=== PATIENT | female | born 2000 ===

== ENCOUNTER → 2025-05-04 23:59 | Outpatient (BNV) | payer OTHER, SELFPAY ==
--- NOTE | 2025-05-05 10:35 | MHC.OFFVIS ---
Intake Visit Reasons: follow up HPI Comments Details: student presents to office for follow up on previous [facility]'s connections (not charted in our system) she was treated for ADHD (previously been on concerta - which is not rx'd here - and pain in ears. no covid test was done. symptomatic treatement was utilized as her exam was negative. [facility] started her on Wellbutrin ER 100mg q d x 1 week increase to BID after 1 month may increase in 100mg increments....sent her to pcp for continued prescribing. therapy referral made to donte palacio (on site counselor). she took medication for about a week and had follow up w/ [facility] who despite her preference to 'self-medicate' with cannabis - she increased the dose. Pt states now that she went to PCP and the medication was discontinued bc she had headache and it made her mood swings worse and preferred to self-medicate w/ cannabis- she feels that this is helpful - uses sativa and only gerts from dispensary so she gets more reputible product. she smokes approx 2-3 x week - 2-3x day. and she feels that it helps her participate in things and be less w/drawn. helps her to concentrate. she states that her pcp will be seeing her again in week or so to eval how feels off the medcaitons and whether they are going to treat w/ meds again. Her mood today is good - can't say why but everybody woke up in a good mood today (when depression comes - it 'comes out of nowhere and she becomes quite apathetic and sad, doesn't talk. she denies any symptoms of junito by description but I question if this is an issue given the 'making mood swings worse'....but the goal today is to establish relationship so that we can be of support to this vulnerable student. she dropped out of school - for reasons she doesn't elaborate but found her way to our program through [employer]. she's excited to be in class and finds that ADHD is not a problem in class her bc they allow her to take care of her needs, class is small. she hopes to go to [employer] downstairs. PMH: ADHD, depression she was in hospital for of her child (boy 5 years old) and because her appendix 'got a blood clot - it was treated not removed' she has IUD in place and her partner is not baby's father - she has been w/ this man 29 year old for approx 1 year and feels that he's a 'really good hiral' a nerd . ETOH: no CANNABIS yes - see above - feels it is medication for her (this was not disputed today - just let her speak what she feels is helping her), CIG: no FMH: Her mother is in very good heatlh at 52, her father is in seemingly good health as well - she 'sees him from time to time' - her parents are not together. she has approx 4 sisters 2 have anemia/something w/ their bones that makes them really skinny, and she has more brothers than she can count approx 10 - one has downs syndrome, one is autistic but otherwise they are all fine. she lives w/ only 1 brother who is in good health. she lives w/ her mother, one brother and her baby. this is a good situation for her - even though sometimes irritating [facility] Medical History (Updated 05/05/25 @ 10:59 by KATERINE Payne) Depression, major, recurrent, moderate History of ADHD Family History (Updated 05/05/25 @ 11:01 by KATERINE Payne) Mother No problems noted. Father No problems noted. Brother No problems noted. Sister No problems noted. Sister No problems noted. Sister Bone disorder Anemia Sister Anemia Bone disorder Brother Down syndrome Brother Autism Brother No problems noted. Brother No problems noted. Brother No problems noted. Brother No problems noted. Brother No problems noted. Brother No problems noted. Brother No problems noted. Son No problems noted. Review of Systems Const Details: Counseling visit: All systems reviewed & are unremarkable except as noted in HPI and below Reports as per HPI Resp Reports as per HPI GI Reports as per HPI Musc Reports as per HPI Neuro Reports as per HPI Psych Reports as per HPI Physical Exam Const General: cooperative, healthy appearing and no acute distress Nutritional Appearance: well nourished Orientation/consciousness: oriented to person Limitations: no limitations HEENT Other: wnl Eyes Other: wnl Chest Other: easy breathing Resp Effort & Inspection: able to speak in complete sentences Skin Other: normal in appearance Neuro General: oriented to person Psych Other: see HPI Mental Status: mental status grossly normal Speech and movement: Clear speech present Attitude: cooperative Thought process: Normal thought process present Assessment & Plan Assessment & Plan (1) Counseling and coordination of care: Code(s): Z71.89 - Other specified counseling Category: Medical (2) control counseling: Code(s): Z30.09 - Encounter for other general counseling and advice on contraception Category: Medical (3) Depression, major, recurrent, moderate: Code(s): F33.1 - Major depressive disorder, recurrent, moderate Category: Medical (4) History of ADHD: Code(s): Z86.59 - Personal history of other mental and behavioral disorders Category: Medical Plan extensive coordination of care w/ previous SURG[employer]MENT [employer], onsite counselor, pcp and onsite team -referral to therapist. This student while having a good day, seems quite vulnerable and needs monitoring of mood and supports. we will all maintain a coordinated approach to provide ongoing support Coding Level of Care Code New Pt Level 5 (27627) Diagnoses Counseling and coordination of care Z71.89 control counseling Z30.09 Depression, major, recurrent, moderate F33.1 History of ADHD Z86.59 Additional Codes PHQ-9 - 14428 - PHQ-9 Billing: Yes ([id number]) [facility] Assessment Charge - Crafft: ZARIA [id number] ([id number]) Time Spent (min) 60 Comment over hour given extensive coordination and counseling PHQ-9 Over the last 2 weeks, how often have you been bothered by any of the following problems? 1. Little interest or pleasure in doing things: nearly every day 2. Feeling down, depressed, or hopeless: nearly every day 3. Trouble falling or staying asleep, or sleeping too much: more than half the days 4. Feeling tired or having little energy: nearly every day 5. Poor appetite or overeating: nearly every day 6. Feeling bad about yourself - or that you are a failure or have let yourself or your family down: nearly every day 7. Trouble concentrating on things, such as reading the newspaper or watching television: several days 8. Moving or speaking so slowly that other people could have noticed. Or the opposite - being so fidgety or restless that you have been moving around a lot more than usual: nearly every day 9. Thoughts that you would be better off or of hurting yourself in some way: not at all Total score: 21 Depression Screening Interpretation: Positive (she is working w/ us and w/ her pcp regarding meds, and referred for therapy ) Depression Screening Follow-up: Existing condition, In treatment and New Medication prescribed Depression Screening Done: Yes [id number] - PHQ-9 Billing: Yes Source: Developed by Drs. Donte Weir, Elina Bermudez, Mundo Means and colleagues, with an educational kanwal from [employer]. ZARIA Screening Tool PART A: In the PAST 12 MONTHS, did you: Drink any alcohol (more than few sips)? (Do not count sips of alcohol taken during family or christianity events.): No Smoke any marijuana or hashish?: Yes Use anything else to get high? (includes illegal drugs, over the counter/prescription drugs, or things that you sniff/alcocer?): No PART B: If answered YES to ANY above: Have you ever been in a CAR driven by someone (including yourself) who was high or had been using alcohol or drugs?: No Do you ever use alcohol or drugs to RELAX, feel better about yourself, or fit in?: No Do you ever use alcohol or drugs while you are by yourself, or ALONE?: No Do you ever FORGET things while using alcohol or drugs?: No Do your FAMILY or FRIENDS ever tell you that you should cut down on your drinking or drug use?: No Have you ever gotten into TROUBLE while you were using alcohol or drugs?: No details: see hpi OMART Assessment Charge Omart: ZARIA [id number]
== END ==
PROVIDERS: PCP Nurse Practitioner Family; Visit Provider Nurse Practitioner Family
DX: F33.1 Major depressive disorder, recurrent, moderate (principal); Z71.89 Other specified counseling; Z30.09 Encounter for other general counseling and advice on contraception; Z86.59 Personal history of other mental and behavioral disorders
CPT/HCPCS: 96127; 96160; 99205

== ENCOUNTER → 2025-05-12 10:34 | Outpatient (BNV) | payer OTHER, SELFPAY ==
--- NOTE | 2025-05-12 10:34 | A.OFFVIS_ITS ---
Intake Visit Reasons: Amb Documentation HPI Comments Details: student states can't breath. was seen in ER yesterday and given meds - she doesn't know what she has taken nor what she has - took a pill this morning and an inhaler that was only 2 a day. called mom - states prednisone 20mg, pulmicort and nebuilizer - she does have an albuterol inhaler as well but didn't do any albuterol this morning. [facility] Medical History Depression, major, recurrent, moderate History of ADHD Family History Mother No problems noted. Father No problems noted. Brother No problems noted. Sister No problems noted. Sister No problems noted. Sister Bone disorder Anemia Sister Anemia Bone disorder Brother Down syndrome Brother Autism Brother No problems noted. Brother No problems noted. Brother No problems noted. Brother No problems noted. Brother No problems noted. Brother No problems noted. Brother No problems noted. Son No problems noted. Review of Systems Const All systems reviewed & are unremarkable except as noted in HPI and below ENT Reports no additional complaints Card Reports no additional complaints and Reports dyspnea Resp Details: cough - can't get air Reports chest congestion, Reports cough and Reports dyspnea GI Reports no additional complaints Skin/Breast Reports system reviewed and no additional complaints, except as documented Neuro Reports no additional complaints Physical Exam Const Other: afebrile - no oximeter available Resp Other: wheezing in all [place] -nebulizer treatement given. improved but still wheezing Cardio Rate: regular rate Rhythm: regular rhythm Heart sounds: S1 normal heart sound present and S2 normal heart sound present Skin General skin exam: no rashes or lesions noted Psych Other: normal affect w/ increased anxiety Appearance: well kempt Assessment & Plan Assessment & Plan (1) Moderate asthma with acute exacerbation: Code(s): J45.901 - Unspecified asthma with (acute) exacerbation Category: Medical Qualifiers: Asthma persistence: unspecified Qualified Code(s): J45.901 - Unspecified asthma with (acute) exacerbation (2) Counseling and coordination of care: Code(s): Z71.89 - Other specified counseling Category: Medical Plan nebulizer treatment - excused to home - if no improvement noted return to ER where was seen last night Coding Level of Care Code Est Pt Level 4 (70094) Diagnoses Moderate asthma with acute exacerbation, unspecified whether persistent J45.901 Asthma persistence: unspecified Counseling and coordination of care Z71.89 Time Spent (min) 35 Comment including counseling/teaching of meds and coord care w/ onsite services
== END ==
PROVIDERS: PCP Nurse Practitioner Family; Visit Provider Nurse Practitioner Family
DX: J45.901 Unspecified asthma with (acute) exacerbation (principal); Z71.89 Other specified counseling
CPT/HCPCS: 99214

== ENCOUNTER → 2025-06-01 10:29 | Outpatient (BNV) | payer OTHER, SELFPAY ==
--- NOTE | 2025-06-01 10:29 | A.OFFVIS_ITS ---
Intake Visit Reasons: Amb Documentation HPI Comments Details: student dropping in stating that her right lower ribs are hurting. hard to take a deep breath. no coughing, no issue breathing - she just came up stairs w/o issue. she points to a spot on her lower ribs and pain is reproduced w/ compression. teachign done [facility] Medical History Depression, major, recurrent, moderate History of ADHD Family History Mother No problems noted. Father No problems noted. Brother No problems noted. Sister No problems noted. Sister No problems noted. Sister Bone disorder Anemia Sister Anemia Bone disorder Brother Down syndrome Brother Autism Brother No problems noted. Brother No problems noted. Brother No problems noted. Brother No problems noted. Brother No problems noted. Brother No problems noted. Brother No problems noted. Son No problems noted. Review of Systems Const All systems reviewed & are unremarkable except as noted in HPI and below Reports as per HPI Resp Reports as per HPI GI Reports as per HPI Musc Reports as per HPI Neuro Reports as per HPI Psych Reports as per HPI Physical Exam afebrile Const General: cooperative, healthy appearing, comfortable and no acute distress Nutritional Appearance: well nourished Orientation/consciousness: patient oriented x3 Limitations: no limitations HEENT Other: wnl Eyes Other: wnl Chest Other: easy breathing Chest palpation & inspection: normal inspection of the chest and localized rib tenderness with anteroposterior compression Resp Effort & Inspection: normal respiratory effort and able to speak in complete sentences Auscultation: clear to auscultation bilaterally Skin Other: normal in appearance Neuro General: patient oriented x3 Psych Other: see HPI Appearance: grossly normal Mental Status: mental status grossly normal Speech and movement: Clear speech present Attitude: cooperative Thought process: Normal thought process present Assessment & Plan Assessment & Plan (1) Costochondritis, acute: Code(s): M94.0 - Chondrocostal junction syndrome [Tietze] Category: Medical (2) Counseling and coordination of care: Code(s): Z71.89 - Other specified counseling Category: Medical Plan teaching done - counseling - will return if there's further issues- let her counselor know in case they need support Coding Level of Care Code Est Pt Level 2 (61256) Diagnoses Costochondritis, acute M94.0 Counseling and coordination of care Z71.89 Time Spent (min) 15 Comment supportive counseling
== END ==
PROVIDERS: PCP Nurse Practitioner Family; Visit Provider Nurse Practitioner Family
DX: M94.0 Chondrocostal junction syndrome [Tietze] (principal); Z71.89 Other specified counseling
CPT/HCPCS: 99212

== ENCOUNTER → 2025-07-28 10:24 | Outpatient (BNV) | payer OTHER, SELFPAY ==
--- NOTE | 2025-07-28 10:24 | A.OFFVIS_ITS ---
Intake Visit Reasons: Amb Documentation HPI Comments Details: student signed up bc counselor told her to. she was really sick yesterday and feels today- better I just have a common cold . took covid test as per policy and was negative. I asked to see her bc she has asthma and doesn't seem to know when she is wheezing badly. she states that she used pump yesterday bc it was really bad. she has a pump at home - she didn't bring to school. Headache and fever yestreday but feels better today - she is afebrile. appears well but as the morning goes on she is appearing sicker - tireder. When I listen to her lungs rhonchi and wheezing through out - she states she is unwilling to cough bc it hurts her throat too much, had her drink water and go to try and cough - listening - her cough is dry and not productive. she was excused to go home, rest and take tylenol and use pump - 3-4 x day. [facility] Medical History Depression, major, recurrent, moderate History of ADHD Family History Mother No problems noted. Father No problems noted. Brother No problems noted. Sister No problems noted. Sister No problems noted. Sister Bone disorder Anemia Sister Anemia Bone disorder Brother Down syndrome Brother Autism Brother No problems noted. Brother No problems noted. Brother No problems noted. Brother No problems noted. Brother No problems noted. Brother No problems noted. Brother No problems noted. Son No problems noted. Review of Systems Const All systems reviewed & are unremarkable except as noted in HPI and below Reports as per HPI Resp Reports as per HPI GI Reports as per HPI Musc Reports as per HPI Neuro Reports as per HPI Psych Reports as per HPI Physical Exam Vital Signs: oxygen 97% Const Other: minor distress - worsened as morning went on. General: cooperative Nutritional Appearance: well nourished Orientation/consciousness: patient oriented x3 Limitations: no limitations HEENT Other: throat red but no exudate General nose exam: Normal external nose present and No nasal discharge present Mouth: Normal oral and palatal mucosa present Eyes Other: wnl Chest Other: easy breathing Resp Effort & Inspection: able to speak in complete sentences Auscultation: rhonchi throughout and wheezes throughout Cardio Other: tachy with coughing otherwise normal Skin Other: normal in appearance Neuro General: patient oriented x3 Psych Other: see HPI Mental Status: mental status grossly normal Speech and movement: Clear speech present Attitude: cooperative Thought process: Normal thought process present Assessment & Plan Assessment & Plan (1) URI (upper respiratory infection): Code(s): J06.9 - Acute upper respiratory infection, unspecified Category: Medical (2) Moderate asthma with acute exacerbation: Code(s): J45.901 - Unspecified asthma with (acute) exacerbation Category: Medical Qualifiers: Asthma persistence: unspecified Qualified Code(s): J45.901 - Unspecified asthma with (acute) exacerbation (3) Counseling and coordination of care: Code(s): Z71.89 - Other specified counseling Category: Medical Plan excused to go home to use pump 3-4 x day and tylenol now and cough drops. ok to return tomorow WITH pump Coding Level of Care Code Est Pt Level 4 (95905) Diagnoses URI (upper respiratory infection) J06.9 Moderate asthma with acute exacerbation, unspecified whether persistent J45.901 Asthma persistence: unspecified Counseling and coordination of care Z71.89 Time Spent (min) 30 Comment counseling and coord of care w/ onsite services and general support
== END ==
PROVIDERS: PCP Nurse Practitioner Family; Visit Provider Nurse Practitioner Family
DX: J06.9 Acute upper respiratory infection, unspecified (principal); J45.901 Unspecified asthma with (acute) exacerbation; Z71.89 Other specified counseling
CPT/HCPCS: 99214